=== PATIENT | female | born 1995 | race African-American/Black ===

== ENCOUNTER 2021-07-04 13:26 | Emergency (ER) | payer OTHER ==
[~2021-07-04] VITALS: Ht 180.3 cm; Wt 113.4 kg
[2021-07-04 14:13] LABS: URINE BILIRUBIN NEGATIVE (Negative); URINE BLOOD NEGATIVE (Negative); URINE CLARITY CLEAR; URINE COLOR YELLOW; URINE GLUCOSE-RANDOM* NEGATIVE (Negative); URINE KETONES NEGATIVE (Negative); URINE LEUKOCYTES-REFLEX NEGATIVE (Negative); URINE NITRITE-REFLEX NEGATIVE (Negative); URINE PROTEIN (DIPSTICK) NEGATIVE (Negative); URINE UROBILINOGEN 0.2 E.U./dl (0.2-1.0)
[2021-07-04] MEDS ORDERED: TESSALON PERLE100 MG PO (15:03)
[2021-07-04] MEDS ORDERED: AMOXICILLIN500 M1 PO (15:03)
[2021-07-04 15:16] VITALS: BP 104/64
== END 2021-07-04 15:17 | disposition home or self-care (01) ==
LOC: ER 13:26
PROVIDERS: Nurse Practitioner
DX: J02.9 Acute pharyngitis, unspecified (principal); Z20.822 Contact with and (suspected) exposure to COVID-19; R05.9 Cough, unspecified